=== PATIENT | male | born 1950 | race Two or more races ===

== ENCOUNTER 2017-05-02 08:38 | Outpatient (CLI) | payer OTHER | END 2017-05-02 08:49 | disposition home or self-care (01) | LOC: NUCLEAR 08:38 | DX: I27.20 Pulmonary hypertension, unspecified (principal) ==

== ENCOUNTER → 2017-05-02 | Emergency (ER) | payer OTHER ==
[~2017-05-02] VITALS: Ht 167.6 cm; Wt 53.5 kg
[~2017-05-02] MED LIST: CLONAZEPAM0.5 MG PO; COUMADIN2 MG PO; FORADIL12 MCG IH; HYDREA500 M1 PO; LOVENOX 40 MG/0.4 ML SUBCUTANEO; MEDROLPACK PO; POM (MEDICAMENTO EN IH; POM (MEDICAMENTO EN PO; PULMICORT180 MCG/AE IH; SPIRIVA RESPIMAT4 G1 IH; TUDORZA PRESS400 MCG IH
== END | disposition designated cancer center or children's hospital (05) ==
LOC: ER 09:37 → CPU-OBS 10:06
DX: I21.4 Non-ST elevation (NSTEMI) myocardial infarction (principal); J96.12 Chronic respiratory failure with hypercapnia; J96.11 Chronic respiratory failure with hypoxia; R07.89 Other chest pain; D45 Polycythemia vera

== ENCOUNTER 2017-05-30 04:07 | Inpatient (IN) | payer OTHER ==
[~2017-05-30] VITALS: Ht 172.7 cm; Wt 53.5 kg
[2017-06-06] MEDS ORDERED: CEFEPIME HCL2 GM IV (10:43)
[2017-06-06] MEDS ORDERED: VANCOMYCIN HCL1 GM IV (10:43)
[2017-06-06] MEDS ORDERED: PREDNISONE10 MG PO (10:45)
== END 2017-06-06 16:10 | disposition home or self-care (01) | DRG 190 ==
LOC: ER 04:07 → MEDJ 11:12 → SEC-K 11:12 → MEDI 14:07 → MEDJ 14:07
PROC: 4A033R1 Measurement of Arterial Saturation, Peripheral, Percutaneous Approach (ICD-10-PCS; principal; 2017-05-30)
PROC: 3E0F7GC Introduction of Other Therapeutic Substance into Respiratory Tract, Via Natural or Artificial Opening (ICD-10-PCS; 2017-05-30)
PROC: 4A12X4Z Monitoring of Cardiac Electrical Activity, External Approach (ICD-10-PCS; 2017-05-31)
PROC: BW24ZZZ Computerized Tomography (CT Scan) of Chest and Abdomen (ICD-10-PCS; 2017-06-01)
DX: J44.1 Chronic obstructive pulmonary disease with (acute) exacerbation (principal); J18.9 Pneumonia, unspecified organism; B37.0 Candidal stomatitis; J96.11 Chronic respiratory failure with hypoxia; J96.12 Chronic respiratory failure with hypercapnia; D45 Polycythemia vera; Z99.81 Dependence on supplemental oxygen; Z86.718 Personal history of other venous thrombosis and embolism; Z87.891 Personal history of nicotine dependence; I25.10 Atherosclerotic heart disease of native coronary artery without angina pectoris; Z98.61 Coronary angioplasty status; Y95 Nosocomial condition; Z88.0 Allergy status to penicillin

== ENCOUNTER → 2017-10-17 | Outpatient (CLI) | payer OTHER ==
[~2017-10-17] MED LIST changes: +CEFEPIME HCL2 GM IV; +ELIQUIS5 MG; +LISINOPRIL2.5 MG; +PLAVIX75 MG; +PREDNISONE10 MG PO; +SYMBICORT 16010.2 GM; +TOPROL XL25 M1; +TUDORZA PRESS400 MCG; +VANCOMYCIN HCL1 GM IV
== END | disposition home or self-care (01) ==
LOC: NUCLEAR 07:00
DX: I50.42 Chronic combined systolic (congestive) and diastolic (congestive) heart failure (principal)

== ENCOUNTER 2017-10-28 11:18 | Emergency (ER) | payer OTHER ==
[~2017-10-28] VITALS: Ht 172.7 cm; Wt 50.8 kg
[~2017-10-28 11:18] MED LIST changes: -ELIQUIS5 MG; -LISINOPRIL2.5 MG; -PLAVIX75 MG; -SYMBICORT 16010.2 GM; -TOPROL XL25 M1; -TUDORZA PRESS400 MCG
[2017-10-28] MEDS ORDERED: TUDORZA PRESS400 MCG (12:36)
[2017-10-28] MEDS ORDERED: SYMBICORT 16010.2 GM (12:36)
[2017-10-28] MEDS ORDERED: TOPROL XL25 M1 (12:37)
[2017-10-28] MEDS ORDERED: LISINOPRIL2.5 MG (12:37)
[2017-10-28] MEDS ORDERED: PLAVIX75 MG (12:38)
[2017-10-28] MEDS ORDERED: ELIQUIS5 MG (12:40)
== END 2017-10-28 18:48 | disposition home or self-care (01) ==
LOC: ER 11:18
DX: M79.601 Pain in right arm (principal)

== ENCOUNTER 2017-11-05 12:57 | Outpatient (CLI) | payer OTHER ==
[~2017-11-05 12:57] MED LIST changes: +ELIQUIS5 MG; +LISINOPRIL2.5 MG; +PLAVIX75 MG; +SYMBICORT 16010.2 GM; +TOPROL XL25 M1; +TUDORZA PRESS400 MCG
== END 2017-11-05 13:02 | disposition home or self-care (01) ==
LOC: RAD 12:57
DX: N20.0 Calculus of kidney (principal); M50.30 Other cervical disc degeneration, unspecified cervical region

== ENCOUNTER 2018-04-04 22:46 | Inpatient (IN) | payer OTHER ==
[~2018-04-04] VITALS: Ht 172.7 cm; Wt 48.1 kg
--- NOTE | 2018-04-04 23:04 | NUR ---
PTE SE RECIBE POR DIFICULTAD RESPIRATORIA REFIERE PARAMEDICO Y PTE.
--- NOTE | 2018-04-05 00:14 | NUR ---
SE RECIBE PACIENTE MASCULINO CON SOB SATURANDO EN 55%, ALE. OLIVERIO EMITE ORDENES LAS CUALES FUERON EJECUTADAS. PACIENTE AL MOMENTO SATURANDO AL 100% DESPUES DE [place] MEDICO ORDENADO. PACIENTE CON BARANDAS ELEVADAS POR SEGURIDAD Y FRENO DE ISAMAR, CON MONITOREO CONTINUO DE SIGNOS VITALES Y MONITOR CARDIACO. AL MOMENTO PACIENTE PENDIENTE A RESULTADOS, SE ORIENTA A FAMILIAR Y PACIENTE ACERCA DE NORMAS DE UNIDAD, SEGURIDAD Y PROTOCOLOS DE VISITA EN UNIDAD DE ICU ER LOS CUALES REFIEREN ENTENDER CON EXCELENTE RETROALIMENTACION DE LO ORIENTADO. AL MOMENTO PACIENTE HEMODINAMICAMENTE ESTABLE DENTRO DE CARMONA CONDICION, TOLERANDO [place] MEDICO ORDENADO. SE CONTINUA MONITOREANDO POR CAMBIOS.
--- NOTE | 2018-04-05 05:43 | NUR ---
SE SHAHRAM MIKI PREVENTIVA, AL MOMENTO PACIENTE ESTABLE, SIGNOS VITALES ESTABLES, VENOPUNCIONES PATENTES, LIBRES DE EDEMA Y ERITEMA. SE CONITNUA MONITOREANDO POR CAMBIOS. AL MOMENTO TOLERANDO [place] MEDICO ORDENADO.
--- NOTE | 2018-04-05 07:22 | NUR ---
SE RECIBE PACIENTE EN CAMA CON BARRANDAS ELEVADAS POR CARMONA SEGURIDAD, ALERTA Y OROIENTADO CONECTADO A MONITOR CARDIACO Y OXIMETRIA DE PULSO. PACIENTE CON VENTURY MASK AL 50%. CON VENOPUNCION PATENTE JARRED DE EDEMA Y ERRITEM EN BRAZO ABHISHEK CON .45 NSS + BICARBONATO BAJANDO A 100 ML/HR. PACIENTE CON SONDA URINARIA DRENANDO ORINA AMARILLO OSCURO CON SEDIMETACION. SE RYANNE SIGNOS VITALES ESTABLES AL MOMENTO SE PHAN A PACIENTE EN CAMA BAJO OBSERVACION POR CAMBIOS EN CARMONA CONDICION.
--- NOTE | 2018-04-05 09:42 | NUR ---
HIGIENE 9:30 AM. SE SHAHRAM SULEMAN A PTE. EN COMPANIA DE FAMILIAR PTE. ALERTA CONCIENTE Y ORIENTTADO.
--- NOTE | 2018-04-05 15:06 | NUR ---
SE RECIBE DE TURNO ANTERIOR PACIENTE MASCULINO. ALERTA Y ORIENTADO EN THELMA ESFERAS. CONECTADO A MONITOR CARDIACO Y OXIMETRIA CON ALARMAS AUDIBLES. SE OBSERVA CON BUEN PATRON RESPIRATORIO. VENTURY MASK AL 50% COLOCADO. SATURANDO 100% AL MOMENTO POR OXIMETRIA MANUAL. PIEL TIBIA AL TACTO. CANALIZACION PATENTE, JARRED DE EDEMA Y/O ENROJECIMIENTO CON HEPARIN LOCK COLOCADO. PACIENTE EN ESPERA DE SER ADMITIDO POR DR CHANTE SERNA.
--- NOTE | 2018-04-05 15:28 | NUR ---
SE RECIBE DE TURNO ANTERIOR PACIENTE MASCULINO. ALERTA Y ORIENTADO EN THELMA ESFERAS. CONECTADO A MONITOR CARDIACO Y OXIMETRIA CON ALARMAS AUDIBLES. SE OBSERVA CON RESPIRACIONES INTERCOSTALES, BONNY. VENTURY MASK AL 50% COLOCADO. SATURANDO 100% AL MOMENTO POR OXIMETRIA MANUAL. PIEL TIBIA AL TACTO. CANALIZA- CION PATENTE, JARRED DE EDEMA Y/O ENROJECIMIENTO CON HEPARIN LOCK COLOCADO. SONDA URINARIA A GRAVEDAD PRESENTANDO ORINA AMARIAYANNAO ALEJANDRO. PACIENTE EN ESPERA DE SER ADMITIDO POR DR CHANTE SERNA.
[2018-05-13] MEDS ORDERED: LIPITOR40 MG PO (18:11)
[2018-05-13] MEDS ORDERED: CLOTRIMAZOLE10 MG MM (18:11)
[2018-05-13] MEDS ORDERED: SALINE NASAL SP30 ML NASAL (18:11)
[2018-05-13] MEDS ORDERED: LISINOPRIL5 MG PO (18:11)
[2018-05-13] MEDS ORDERED: B Complex CAPSULE PO (18:11)
[2018-05-13] MEDS ORDERED: CARAFATE1 GM PO (18:11)
[2018-05-13] MEDS ORDERED: ELIQUIS5 MG PO (18:11)
[2018-05-13] MEDS ORDERED: IPRATROPIU0.2 MG/1 M IH (18:11)
[2018-05-13] MEDS ORDERED: FLONASE16 GM NASAL (18:11)
[2018-05-13] MEDS ORDERED: GAS RELIEF125 MG PO (18:11)
[2018-05-13] MEDS ORDERED: TAMSULOSIN HCL0.4 MG PO (18:11)
[2018-05-13] MEDS ORDERED: XOPENEX0.63 MG/3 IH (18:11)
[2018-05-13] MEDS ORDERED: TOPROL XL25 M1 PO (18:11)
[2018-05-13] MEDS ORDERED: MEDROLPACK PO (18:12)
== END 2018-05-13 20:18 | disposition home or self-care (01) | DRG 166 ==
LOC: ER 22:46 → MEDI 04-05 18:36
PROVIDERS: ADMIT Internal Medicine
PROC: 4A12X4Z Monitoring of Cardiac Electrical Activity, External Approach (ICD-10-PCS; 2018-04-05)
PROC: 3E0F7GC Introduction of Other Therapeutic Substance into Respiratory Tract, Via Natural or Artificial Opening (ICD-10-PCS; 2018-04-05)
PROC: 0BH17EZ Insertion of Endotracheal Airway into Trachea, Via Natural or Artificial Opening (ICD-10-PCS; 2018-04-06)
PROC: 5A1955Z Respiratory Ventilation, Greater than 96 Consecutive Hours (ICD-10-PCS; 2018-04-06)
PROC: 4A033R1 Measurement of Arterial Saturation, Peripheral, Percutaneous Approach (ICD-10-PCS; 2018-04-06)
PROC: 02HV33Z Insertion of Infusion Device into Superior Vena Cava, Percutaneous Approach (ICD-10-PCS; 2018-04-08)
PROC: B246ZZZ Ultrasonography of Right and Left Heart (ICD-10-PCS; 2018-05-02)
PROC: 30233N1 Transfusion of Nonautologous Red Blood Cells into Peripheral Vein, Percutaneous Approach (ICD-10-PCS; 2018-05-03)
PROC: 0JB70ZZ Excision of Back Subcutaneous Tissue and Fascia, Open Approach (ICD-10-PCS; principal; 2018-05-10)
DX: J44.1 Chronic obstructive pulmonary disease with (acute) exacerbation (principal); L89.153 Pressure ulcer of sacral region, stage 3; J16.8 Pneumonia due to other specified infectious organisms; J96.22 Acute and chronic respiratory failure with hypercapnia; J96.21 Acute and chronic respiratory failure with hypoxia; J96.12 Chronic respiratory failure with hypercapnia; J96.11 Chronic respiratory failure with hypoxia; Y95 Nosocomial condition; Z95.1 Presence of aortocoronary bypass graft; Z87.891 Personal history of nicotine dependence; I25.10 Atherosclerotic heart disease of native coronary artery without angina pectoris; Z88.0 Allergy status to penicillin; D45 Polycythemia vera; Z86.718 Personal history of other venous thrombosis and embolism; F06.4 Anxiety disorder due to known physiological condition

== ENCOUNTER 2018-05-25 22:28 | Inpatient (IN) | payer OTHER ==
[~2018-05-25] VITALS: Ht 175.3 cm; Wt 46.7 kg
[~2018-05-25 22:28] MED LIST changes: +B Complex CAPSULE PO; +CARAFATE1 GM PO; +CLOTRIMAZOLE10 MG MM; +ELIQUIS5 MG PO; +FLONASE16 GM NASAL; +GAS RELIEF125 MG PO; +IPRATROPIU0.2 MG/1 M IH; +LIPITOR40 MG PO; +LISINOPRIL5 MG PO; +SALINE NASAL SP30 ML NASAL; +TAMSULOSIN HCL0.4 MG PO; +TOPROL XL25 M1 PO; +XOPENEX0.63 MG/3 IH
--- NOTE | 2018-05-25 23:00 | NUR ---
SE RECIBE DE TURNO ANTERIOR MASCULINO DE 68 ANOS EN UNIDAD ICU EN CAMA #1,PACIENTE ALERTA,DESORIENTADO POR DOS ESFERAS,DESCANSANDO EN CAMA,BARANDAS ELEVADAS,FRENOS,WEBBER DE IDENTIFICACION COLOCADOS POR SEGURIDAD. CONECTADO A MONITOR CARDIACO,OXIMETRIA DE PULSO CONTINUA,ASISTIDO RESPIRATORIAMENTE CON NON RBM,SATURANDO AL 100%. AREA DE VENOPUNCION LIMPIA,SECA,JARRED DE S/S EDEMA Y/O ERITEMA. IVF'S PATENTE BAJANDO 0.9%NSS @60ML/HR. PIEL TIBIA AL TACO Y ABDOMEN DEPRESIBLE AL MISMO.PERISTALSIS PRESENTE. EXTREMIDADES SUPERIORES E INFERIORES LIBRES DE S/S EDEMA. SE ORIENTA FAMILIARES ACERCA DE HORARIO DE VISITAS,REFIEREN ENTENDER. FAMILIARES FIRMAN DOCUMENTO DE DNI. SE MANTIENE PACIENTE BAJO OBSERVACION.
--- NOTE | 2018-05-25 23:07 | NUR ---
SE REDCIBE PTE ALERTA Y ORIENTADO X3,EN AMBULANCIA REFIEREFAMILIAR QUE COMENZO HOY CON DIFICULTAD RESPIRATORIA.
[2018-05-25] MEDS ORDERED: TAMS0.4C (23:15)
--- NOTE | 2018-05-26 03:45 | NUR ---
RE EVALUA PACIENTE Y ORDENA TRATAMIENTO MEDICO DEL CUAL SE ORIENTA PACIENTE. SE RYANNE MUESTRAS DE LABORATORIOS Y ADMINISTRAN MEDICAMENTOS BAJO MEDIDAS ASEPTICAS. SE NOTIFICA A PERSONAL DE TERAPIA RESPIRATORIA ORDEN MEDICA DE COLOCAR BIPAP Y TERAPIAS. SE MANTIENE PACIENTE BAJO OBSERVACION.
--- NOTE | 2018-05-26 04:29 | NUR ---
ORDENA RESTRICCION DE PACIENTE. SE LLEVA A CABO ORDEN MEDICA.
--- NOTE | 2018-05-26 04:30 | NUR ---
ORDENA RESTRICCION A PACIENTE. SE LLEVA A CABO ORDEN MEDICA YA QUE PACIENTE SE ENCUENTRA DESORIENTADO,POCO COPERADOR.
--- NOTE | 2018-05-26 07:36 | NUR ---
SE RECIBE PTE MASCULINO DE 68 YRS ALERTA CONCIENTE Y AL MOMENTO TRANAUILO EN CAMA EN LA UNIDAD DE CRITICO DE LA AMADO DE EMERGENCIA. PTE CONECTADO A MONITOR CARDIACO Y OXIMENTRIA .SE OBSERVA PTE CON FOLIE CATHETE CON UN OUPUT DE COLOR AMARILLO ALEJANDRO. PTE BAJANDO .9NSS A 80 ML HR EN ANTEBRASO DERCHO CON ANGIO #18/ SE LE AZAR S/V LA CUAL SE DOCUMENTA. PTE CONSULTADO CON EL DR, CAMPBELL LA CUAL SE NOTIFICA POR LA ALE.MILA/ PTE SE OBSERVA ON BIPAP CON PARAMETROS IPAP-12 EPAP-6 FO2-70 RATE-12 PTE SE OBSERVA RESTRIGIDO X 2 EN EXTREMIDADES SUPERIORES SE MANTIENE BAJO OBSERVACION POR CAMBIOS EN CARMONA COINDICION . SE OBSERVA PTE CON ULCERA SACRAL CATEGORIA #3 LA CUAL SE LLAMARA A SKINTEAM PARA MANEJO DE MEDICAMENTOS.SE OBSERVA POR CAMBIOS.
--- NOTE | 2018-05-26 08:41 | NUR ---
SE LE NOTIFICA A EL DR.MARCUS MOLINA PARA LA CONSULTA YA QUE EL ADRIAN MATT NO CUBRE EL PHOEBE MATT.
--- NOTE | 2018-05-26 14:10 | NUR ---
SE LE AZAR MUESTRA DE CULTIBO DE ULCERA SACRAL LA CUAL SE OBSERVA DE GREG 3 ABIERTA HEDY Y LEVEMENTE NEGROTIZADA. SE OBSERVA POR CAMBIOS.
--- NOTE | 2018-05-26 14:17 | NUR ---
SSE LE DRAKE MEDICAMENTOS ORDENADOS POR EL MEDICO. SE MANTIENE BAJO OBSERVACION POR CAMBIOS.
--- NOTE | 2018-05-26 15:12 | NUR ---
SE RECIBE PACIENTE ESTABLE, ALERTA Y DESORIENTADO X3, CON HARINI TAQUICARDIA SOSTENIDA FLUCTUANDO ENTRE 165/170/MIN, SE NOTIFICA A DR. NICK MOLINA EL CUAL ORDENA CARDIZEM 100MG/100ML RUNNING AT 5ML/HR, SE EJECUTA ORDEN, SE CONTINUA MONITOREANDO PORCAMBIOS, PACIENTE AL MOMENTO [place]OL[place] MEDICO ORDENADO. VENOPUNCION PATENTE, JARRED DE EDEMA Y ERITEMA.
--- NOTE | 2018-05-26 16:20 | NUR ---
SE NOTIFICA A DR. NICK MOLINA NIVELES DE HIPOTENSION EN 80/50, EL MISMO ORDENA DETENER CARDIZEM Y ADMINISTRAR 50MG DE LOVENOX SC, SE EJECUTA ORDEN, SE CONTINUA MONITOREANDO POR CAMBIOS SIGNIFICATIVOS; PACIENTE AL MOMENTO HEMODINAMICAMENTE ESTABLE DENTRO DE CARMONA CONDICION, DR. NICK MOLINA ORDENA ADEMAS CONSULTA CON CARDIO, DR. [place].
--- NOTE | 2018-05-26 20:56 | NUR ---
SE SHAHRAM MIKI PREVENTIVA, PACIENTE AL MOMENTO ESTABLE, SIGNOS VITALES ESTABLES, ALERTA JUNIOR DESORIENTADO X3, AL MOMENTO TOLERANDO [place] MEDICO. VENOPUNCIONES PATENTES, LIBRES DE EDEMA Y ERITEMA.
--- NOTE | 2018-05-26 23:42 | NUR ---
SE RECIBE PTE MASCULINO ALERTA Y EN DESCANSO AL MOMENTO Y DESORIENTADO,CONECTADO A MONITOR CARDIACO CHETAN Y OXIMETRIA EN CAMA #1 ICU ER,SE MANTIENE CON IVF PATENTE CON IVPUMP,AREA JARRED DE EDEMA Y ENROJECIMIENTO,SE MANTIENE CON BPAP(IPAP-12,EPAP-6,FO2-70,RATE-12),SE REALIZAN TERAPIAS RESPIRATORIAS,SE REALIZARAN CAMBIOS DE POSICION CADA 2 HRS,RESTRICCIONES SUPERIORES YA QUE PTE SE ENCUENTRA DESORIENTADO,SE MANTIENE A PTE CON GONZALEZ,FIRMADAS DIRECTRICES ANTICIPADAS,DNR Y DNI,SE MANTIENE A PTE CON GONZALEZ,PTE EN VIGILANCIA CHETAN POR CAMBIOS.
--- NOTE | 2018-05-27 07:00 | NUR ---
SE RECIBE DE TURNO ANTERIOR EN AREA DE CRITICO CAMA #1. PACIENTE MASCULINO. ALERTA Y DESORIENTADO. CONECTADO A MONITOR CARDIACO Y OXIMETRIA CON ALARMAS AUDIBLES. CABECERA A 30 GRADOS. BARANDAS ELEVADAS POR CARMONA SEGURIDAD. BUEN PATRON RESPIRATORIO. ASISTIDO RESPIRATORIAMENTE POR BIPAP CON PARAMETROS: IPAP (12), EPAP (6), FO2 (70), RATE (12). SATURANDO 100% POR OXIMETRIA MANUAL. PIEL TIBIA AL TACTO. CANALIZACION PATENTE, JARRED DE EDEMA Y/O ENROJECIMIENTO RECIBIENDO 0.9%NSS @ 125ML/HR. EXTREMIDADES SUPERIORES RESTRINGIDAS; PIEL ADYACENTE INTACTA. ABDOMEN DEPRESIBLE AL TACTO. PERISTALSIS PRESENTE. SONDA URINARIA A GRAVEDAD PRESENTANDO ORINA AMARILLO ALEJANDRO. PROTECTORES DE TALONES COLOCADOS. SE MANTIENE BAJO OBSERVACION POR CAMBIOS.
--- NOTE | 2018-05-27 09:59 | NUR ---
PACIENTE CON ULCERA EN AREA SACRAL. SE NOTIFICA A DR Susi MURRAYIEN ORDENA COLOCAR CONSULTA CON SKIN TEAM.
--- NOTE | 2018-05-27 10:00 | NUR ---
JUNTO A MR COLON (INTEGRATION DIRECTOR), SE PROVEE SULEMAN EN CAMA. PACIENTE INGIERE DESAYUNO. AL MOMENTO TOLERA INTERVENCIONES.
--- NOTE | 2018-05-27 14:49 | NUR ---
MS JASMEET Y MR DOMENICO (SKIN TEAM) BRINDAN CUIDADO DE ULCERA A PACIENTE.
--- NOTE | 2018-05-27 15:47 | NUR ---
SE RECIBE PACIENTE EN CAMA #1 AREA DE ICU 2.SE OFRECE MIKI PARA EVALUAR CONDI- CION.PACIENTE CONECTADO A MONITOR CARDIACO CON SATUROMETRO,CON VPAP CON PARAMETROS EN IPAP 12,EPAP 6,FO2 EN70%,RR12,IVF'S PATENTE BAJANDO .9NSS A 125MLS/HR CON CANALIZACION EN MANO DERECHA #18 Y EN BRAZO DERECHO #20 AMBAS LIBRES DE EDEMA Y/O ERITEMA,PACIENTE RESTRINGIDO POR 2 EXTREMIDADES SUPERIORES AREAS LIBRES DE EDEMA Y/O ERITEMA.GONZALEZ PATENTE A GRAVEDAD BAJANDO [facility] INTENSO.BARANDAS ELEVADAS POR CARMONA SEGURIDAD Y WEBBER ANARANJADA DE PREVENCION A CAIDA EN MANO DERECHA.PACIENTE CON BARANDAS ELEVADAS POR CARMONA SEGURIDAD.SE CONTINUA MONITOREANDO EN TURNO POR CAMBIOS SIGNIFICATIVOS.(PACIENTE CON ULCERA SACRAL EVALUADA Y TRATADA POR PERSONAL DE SKIN TEAM EN TURNO ANTERIOR).
[2018-06-19] MEDS ORDERED: VITAMIN B COMP1 EAC1 PO (15:12)
[2018-07-10] MEDS ORDERED: ISOSORBIDE DINIT5 MG PO (10:54)
[2018-07-10] MEDS ORDERED: LIPITOR40 MG PO (10:54)
[2018-07-10] MEDS ORDERED: INTEGRA PLUS C1 EACH PO (10:54)
[2018-07-10] MEDS ORDERED: Intestinex CAP PO (10:54)
[2018-07-10] MEDS ORDERED: B Complex CAPSULE PO (10:54)
[2018-07-10] MEDS ORDERED: PREDNISONE10 MG PO (10:54)
[2018-07-10] MEDS ORDERED: Neurin-Sl Tablet Sl SL (10:54)
[2018-07-10] MEDS ORDERED: TOPROL XL25 M1 PO (10:54)
[2018-07-10] MEDS ORDERED: CLONAZEPAM0.5 MG PO (10:54)
[2018-07-10] MEDS ORDERED: ELIQUIS2.5 MG PO (10:54)
[2018-07-10] MEDS ORDERED: TAMSULOSIN HCL0.4 MG PO (10:54)
== END 2018-07-10 19:58 | DRG 166 ==
LOC: ER 22:28 → SEC-K 05-27 18:00 → MEDJ 05-27 18:00 → ICU-2 05-27 18:00 → MEDI 05-27 18:00 → SEC-K 05-27 18:37 → MEDI 05-27 19:34 → MEDJ 05-28 14:30
PROVIDERS: ADMIT Internal Medicine
PROC: 5A09457 Assistance with Respiratory Ventilation, 24-96 Consecutive Hours, Continuous Positive Airway Pressure (ICD-10-PCS; 2018-05-27)
PROC: 3E0F7GC Introduction of Other Therapeutic Substance into Respiratory Tract, Via Natural or Artificial Opening (ICD-10-PCS; 2018-05-27)
PROC: 4A033R1 Measurement of Arterial Saturation, Peripheral, Percutaneous Approach (ICD-10-PCS; 2018-05-27)
PROC: 4A12X4Z Monitoring of Cardiac Electrical Activity, External Approach (ICD-10-PCS; 2018-05-27)
PROC: B246ZZZ Ultrasonography of Right and Left Heart (ICD-10-PCS; 2018-05-28)
PROC: 8E0ZXY6 Isolation (ICD-10-PCS; 2018-05-28)
PROC: 0JB70ZZ Excision of Back Subcutaneous Tissue and Fascia, Open Approach (ICD-10-PCS; principal; 2018-05-30)
PROC: 0T9B70Z Drainage of Bladder with Drainage Device, Via Natural or Artificial Opening (ICD-10-PCS; 2018-06-04)
DX: J44.1 Chronic obstructive pulmonary disease with (acute) exacerbation (principal); L89.153 Pressure ulcer of sacral region, stage 3; J96.01 Acute respiratory failure with hypoxia; J96.02 Acute respiratory failure with hypercapnia; J45.41 Moderate persistent asthma with (acute) exacerbation; I96 Gangrene, not elsewhere classified; N39.0 Urinary tract infection, site not specified; I82.4Y1 Acute embolism and thrombosis of unspecified deep veins of right proximal lower extremity; I47.1 Supraventricular tachycardia; D62 Acute posthemorrhagic anemia; J90 Pleural effusion, not elsewhere classified; E87.2 Acidosis; Z88.0 Allergy status to penicillin; I25.10 Atherosclerotic heart disease of native coronary artery without angina pectoris; Z99.81 Dependence on supplemental oxygen; D45 Polycythemia vera; Z72.0 Tobacco use; Z66 Do not resuscitate; D72.828 Other elevated white blood cell count; Z79.01 Long term (current) use of anticoagulants; B96.5 Pseudomonas (aeruginosa) (mallei) (pseudomallei) as the cause of diseases classified elsewhere; B95.2 Enterococcus as the cause of diseases classified elsewhere; B96.4 Proteus (mirabilis) (morganii) as the cause of diseases classified elsewhere; K52.89 Other specified noninfective gastroenteritis and colitis; R31.29 Other microscopic hematuria; M94.0 Chondrocostal junction syndrome [Tietze]; Z74.01 Bed confinement status; D47.3 Essential (hemorrhagic) thrombocythemia; F43.22 Adjustment disorder with anxiety; N48.89 Other specified disorders of penis; R31.0 Gross hematuria

== ENCOUNTER 2019-07-29 11:15 | Inpatient (IN) | payer OTHER ==
[~2019-07-29] VITALS: Ht 175.3 cm; Wt 50.3 kg
[~2019-07-29 11:15] MED LIST changes: +ELIQUIS2.5 MG PO; +INTEGRA PLUS C1 EACH PO; +ISOSORBIDE DINIT5 MG PO; +Intestinex CAP PO; +Neurin-Sl Tablet Sl SL; +TAMS0.4C; +VITAMIN B COMP1 EAC1 PO
== END 2019-07-30 14:48 | disposition expired | DRG 189 ==
LOC: ER 11:15 → ICU-2 19:26
PROVIDERS: ADMIT Internal Medicine; ATTEND Internal Medicine
PROC: 5A09357 Assistance with Respiratory Ventilation, Less than 24 Consecutive Hours, Continuous Positive Airway Pressure (ICD-10-PCS; 2019-07-29)
PROC: BW24ZZZ Computerized Tomography (CT Scan) of Chest and Abdomen (ICD-10-PCS; principal; 2019-07-30)
DX: J96.02 Acute respiratory failure with hypercapnia (principal); J18.9 Pneumonia, unspecified organism; J44.1 Chronic obstructive pulmonary disease with (acute) exacerbation; E87.2 Acidosis; I47.1 Supraventricular tachycardia; R64 Cachexia; J96.01 Acute respiratory failure with hypoxia; J98.3 Compensatory emphysema; Z87.891 Personal history of nicotine dependence; E86.0 Dehydration; F43.22 Adjustment disorder with anxiety; D45 Polycythemia vera; Z99.81 Dependence on supplemental oxygen; I25.10 Atherosclerotic heart disease of native coronary artery without angina pectoris; I10 Essential (primary) hypertension; Z74.01 Bed confinement status; D38.1 Neoplasm of uncertain behavior of trachea, bronchus and lung